=== PATIENT | female | born 1965 | race Caucasian/White ===

== ENCOUNTER → 2016-11-21 | Outpatient (CLI) | payer OTHER ==
[~2016-11-21] MED LIST: CONTRAST GIVEN MC PRN; IOHEXOL 300 MG/ML 100ML VIAL. IV ONE
--- NOTE | 2016-11-21 16:15 | RAD ---
CT of the chest with contrast, 11/21/2016: History: Pleural abnormalities on MR scan Multidetector CT imaging was performed following an IV bolus injection of iodinated contrast material. The thoracic aorta is unremarkable. No mediastinal or hilar adenopathy is seen. There is minimal pleural-parenchymal scarring over the right pulmonary apex. No pulmonary mass or consolidation is seen. There is no evidence of pleural fluid. There is a tiny 8 x 5 mm oval-shaped nodule present along the superficial margin of the pleura between the posteromedial aspects of the left fourth and fifth ribs. This corresponds to the density described on the recent MR exam. It demonstrates a low CT number suggesting fluid. It lies directly adjacent to the undersurface of the fourth rib. This is a subtle finding of doubtful significance. The other area described on the MR study corresponds to a subtle area of minimal smooth pleural thickening posteromedially on the right at the T7-8 level. No rib destruction is seen. There are mild scattered spurs in the spine. The right kidney is malrotated. There is a 4 cm cyst present posteriorly in the right kidney. Mild prominence of the common bile duct is probably secondary to the postcholecystectomy state. IMPRESSION: 1. Minimal smooth pleural thickening posteriorly on the right. 2. Tiny low-density extrapulmonary opacity abutting the pleura along the undersurface of the left fourth rib as described above. The appearance suggests a nonspecific fluid collection of doubtful significance. A neurogenic tumor or metastasis are much less likely possibilities. MRI or CT follow-up may be considered to establish stability. 3. The chest is otherwise unremarkable. PQRS Compliance Statement: One or more of the following individualized dose reduction techniques were utilized for this examination: 1. Automated exposure control 2. Adjustment of the mA and/or kV according to patient size 3. Use of iterative reconstruction technique
== END | disposition home or self-care (01) ==
LOC: KCIC CT 13:16
PROVIDERS: ATTEND Family Medicine
DX: J92.9 Pleural plaque without asbestos (principal); Q63.2 Ectopic kidney; N28.1 Cyst of kidney, acquired
CPT/HCPCS: 71260; Q9967

== ENCOUNTER 2017-12-24 16:58 | Emergency (ER) | payer OTHER | END 2017-12-24 18:12 | disposition home or self-care (01) | LOC: ER 16:58 | DX: M54.5 Low back pain (principal); Z88.5 Allergy status to narcotic agent; Z90.49 Acquired absence of other specified parts of digestive tract; V43.52XA Car driver injured in collision with other type car in traffic accident, initial encounter; Y93.I9 Activity, other involving external motion; Y92.410 Unspecified street and highway as the place of occurrence of the external cause; Y99.8 Other external cause status | CPT/HCPCS: 72100; 99284 ==

== ENCOUNTER → 2020-11-19 | Outpatient (CLI) | payer OTHER ==
[2017-12-24 18:09] VITALS: BP 125/76
[~2020-11-19] MED LIST changes: -CONTRAST GIVEN MC PRN; +CYCL5TAB PO; -IOHEXOL 300 MG/ML 100ML VIAL. IV ONE
--- NOTE | 2020-11-19 11:08 | KCIC ---
EXAM: Right hip, 2 views. HISTORY: Pain. COMPARISON: None. FINDINGS: 2 views of the right hip are obtained. There is no fracture, dislocation or subluxation. Th e femoral head is normal in configuration. IMPRESSION: No acute osseous finding. Electronically signed by: Summer Mei MD (11/19/2020 11:06 AM) [id number]
== END ==
LOC: KCIC 10:25
PROVIDERS: ATTEND Family Medicine
DX: M25.551 Pain in right hip (principal)
CPT/HCPCS: 73502